=== PATIENT | female | born 1960 | race Caucasian/White ===

== ENCOUNTER 2016-06-02 17:34 | Emergency (ER) | payer BC ==
[2016-06-02 17:57] VITALS: BP 125/81
--- NOTE | 2016-06-02 19:12 | UC ---
Abdominal Pain Female HPI - HPI Summary HPI Summary: The patient comes in today for: 1. Abdominal pain: Onset: 4 days ago. Palliative/provocative: Not eating makes it better. No food particularly makes the pain better or worse. Quality: Bloating, cramping Region: Epigastric, but no radiation to the back, however she has left shoulder pain which started yesterday. Severity: 6/10 Time: Comes and goes. Associated symptoms: Diarrhea: For 1-2 days and the stool is oily. She had indigestion in her chest last night, FEvers: None known--no temperature taken, but she has had some chills--no sweats. She does not have her gallbladder--taken out due to stones. Regular doctor: Dr. Hodgson in [place]. Previous diagnosis: She has gastroparesis. Pancreas or stomach disease other than the gastroparesis. * - History of Current Complaint Chief Complaint: UCAbdominalPain Stated Complaint: ABDOMINAL PAIN Time Seen by Provider: 06/02/16 19:03 Hx Obtained From: Patient Hx Last Menstrual Period: Hyst. ?: No Allergies/Adverse Reactions: Allergies Allergy/AdvReac Type Severity Reaction Status Date / Time Latex Allergy Rash Verified 06/02/16 17:58 Home Medications: Home Medications Acetaminophen TAB* [Tylenol TAB*] 650 mg PO PRN 06/02/16 [History] Ondansetron TAB* [Zofran Tab*] PRN 06/02/16 [History] PMH/Surg Hx/FS Hx/Imm Hx Previously Healthy: No - Gastroparesis, interstitial cystitis Endocrine History Of: Reports: Thyroid Disease - HYPO, Dyslipidemia Denies: Diabetes Cardiovascular History Of: Denies: Cardiac Disorders, Hypertension, Pacemaker/ICD, Myocardial Infarction , Congestive Heart Failure, Atrial Fibrillation, Deep Vein Thrombosis, Bleeding Disorders Respiratory History Of: Denies: COPD, Asthma, Bronchitis, Pneumonia, Pulmonary Embolism GI/ History Of: Reports: Kidney Stones Denies: Gastroesophageal Reflux, Ulcer, Gastrointestinal Bleed, Gall Bladder Disease, Diverticulitis, Renal Disease, Urosepsis Neurological History Of: Denies: TIA, CVA, Dementia, Seizures, Migraine Psychological History Of: Denies: Anxiety, Depression, Bipolar Disorder, Schizophrenia, Post Traumatic Stress Disorder Cancer History Of: Denies: Lung Cancer, Colorectal Cancer, Breast Cancer, Prostate Cancer, Cervical Cancer Other History Of: Negative For: HIV, Hepatitis B, Hepatitis C, Anticoagulant Therapy - Surgical History Surgical History: Yes Surgery Procedure, Year, and Place: Reduction Mammoplasty 1999, Complete Hysterectomy age 24 ,RT knee surgery x3, Gallbladder removed; 2010 LASIK EYES - Family History Known Family History: Positive: Cardiac Disease, Hypertension - Social History Occupation: Employed Full-time Alcohol Use: Occasionally Alcohol Amount: 1 PER WEEK Substance Use Type: None Smoking Status (MU): Never Smoked Tobacco Review of Systems Constitutional: Negative Skin: Negative Eyes: Negative ENT: Negative Respiratory: Negative Cardiovascular: Negative Gastrointestinal: Abdominal Pain, Diarrhea Genitourinary: Negative All Other Systems Reviewed And Are Negative: Yes Physical Exam Triage Information Reviewed: Yes Appearance: Well-Appearing, No Pain Distress - She complains of pain, but is not grimacing., Well-Nourished Vital Signs: Initial Vital Signs Temp 97.9 F 06/02/16 17:54 Pulse 71 06/02/16 17:54 Resp 16 06/02/16 17:54 BP 125/81 06/02/16 17:54 Pulse Ox 100 06/02/16 17:54 Vital Signs Reviewed: Yes Eyes: Positive: Conjunctiva Clear. Negative: Discharge ENT: Positive: Hearing grossly normal. Negative: Pharyngeal erythema, Nasal congestion, Nasal drainage, TM bulging, TM dull, TM red, Tonsillar swelling, Tonsillar exudate Dental: Negative: Gross Decay/Caries @, Dental Fracture @ Neck: Positive: Supple, Nontender, No Lymphadenopathy. Negative: Nuchal Rigidity Respiratory: Positive: Lungs clear, No respiratory distress, No accessory muscle use. Negative: Crackles, Wheezing Cardiovascular: Positive: RRR, No Murmur Abdomen Description: Positive: No Organomegaly, Soft, Distended - Increased tympany.. Negative: Nontender - She has tenderness of the epigrastric and LUQ with palpation. NO rebound or percussion tenderness. Increased tympany, and bowel sounds were present., Bruit, Guarding, Peritoneal Signs, Pulsatile Mass Musculoskeletal: Positive: Strength Intact, ROM Intact Neurological: Positive: Alert, Muscle Tone Normal Psychological: Positive: Age Appropriate Behavior. Negative: Consolable Skin: Negative: rashes, breakdown Abd Pain Female Course/Dx - Differential Dx/Diagnosis Provider Diagnoses: Abdominal pain - Physician Notification/Consults Discussed Patient Care With: Edna Sheriff Time Discussed With Above Provider: 19:28 Discharge - Discharge Plan Condition: Stable Disposition: AGAINST MEDICAL ADVICE Additional Instructions: Please go directly to the ER.
== END 2016-06-02 19:30 | disposition left against medical advice (07) ==
LOC: UCEAST 17:34
DX: R10.13 Epigastric pain (principal); M25.512 Pain in left shoulder; Z90.49 Acquired absence of other specified parts of digestive tract
CPT/HCPCS: 99212; G0463

== ENCOUNTER 2016-06-02 19:49 | Emergency (ER) | payer BC ==
[2016-06-02 20:03] VITALS: BP 113/83
== END 2016-06-02 21:28 | disposition left against medical advice (07) ==
LOC: ED 19:49
DX: R10.9 Unspecified abdominal pain (principal); Z53.21 Procedure and treatment not carried out due to patient leaving prior to being seen by health care provider
CPT/HCPCS: 99281

== ENCOUNTER 2017-03-17 10:41 | Day surgery (SDC) | payer BC ==
--- NOTE | 2017-03-08 14:30 | HP ---
ADDENDUM NOW INCLUDED ON THIS REPORT CC: Dr. Jeanette Mcdermott; Dr. Susanna Hernandez * PREOPERATIVE HISTORY AND PHYSICAL: DATE OF ADMISSION: This patient is scheduled for same-day surgery admission by Dr. Xiao on 03/17/17. DATE OF PREOPERATIVE HISTORY AND PHYSICAL EXAMINATION: 03/08/17. ATTENDING SURGEON: Dr. Sheila Xiao * (dictated by Debi Stevenson NP). CHIEF COMPLAINT: Right breast lump. HISTORY OF PRESENT ILLNESS: The patient is a 56-year-old female, recently evaluated by Dr. Xiao for a right breast mass. The patient felt a lump in the right breast about 2 months ago and states that at times it is tender. All imaging was normal including MRI. Fine needle aspiration in our office did not have breast tissue and therefore, Dr. Xiao recommended excision of the right breast mass. The patient has had 2 pregnancies, had her first child at 18, menopause at age 24 when she had a total abdominal hysterectomy and bilateral salpingo-oophorectomy for cysts. She took HRT for 15 years. She has a very strong family history of breast cancer and melanoma, both paternally and maternally. She has a first cousin in her 50s with breast and ovarian cancer that is BRCA positive. Her maternal aunt (who is the BRCA carrier's mom) also had breast cancer. Her paternal uncle is the father of this cousin as well. There is also breast cancer in other paternal and maternal aunts as well as 2 other paternal cousins and 1 other paternal cousin. Her father and her brother both have had melanoma. There is also maternal history of colon cancer. Of note, the patient has had a bilateral reduction mammoplasty. Dr. Xiao examined the patient and notes a thickened asymmetrical mass in the right breast in the medial aspect at the edge of the mammoplasty scar. She has recommended excision of the right breast mass as a same-day surgery procedure and described the nature of the procedure, the relevant risks and benefits, and today I reviewed the typical postoperative care and recovery. The patient has had a chance to ask questions and stated that she understands the information and is satisfied with the answers given to her questions. She will sign surgical consent on the day of surgery. PAST MEDICAL HISTORY: Significant for hyperlipidemia, hypothyroidism, overactive bladder. She is followed for primary care by Dr. Susanna Hernandez. PAST SURGICAL HISTORY: Three knee procedures, bilateral reduction mammoplasty, laparoscopic cholecystectomy, YAQUELIN/BSO, and right foot surgery for a ganglion cyst. FAMILY HISTORY: Please refer to history of present illness; in terms of anesthesia history, she reports that her mother has had a very prolonged recovery and it sounds like she required Narcan to awaken. No family history of deep vein thrombosis or pulmonary embolism is known. No known bleeding tendencies. SOCIAL HISTORY: She is and is employed in the [employer] business and often works from home; she has never smoked and she occasionally drinks alcohol and denies the use of other substances. REVIEW OF SYSTEMS: Constitutional: No fevers, chills, excessive fatigue, or unintentional weight loss. Endocrine: No diabetes. She is treated for hypothyroidism. Hematologic: No easy bruising or bleeding. She had a blood transfusion in 1978 after her first delivery. Breasts: Right breast mass. Respiratory: No dyspnea on exertion. No chronic cough. Cardiovascular: No chest pain or palpitations. Gastrointestinal: No nausea, vomiting, diarrhea, or constipation. No change in bowel habits. No heartburn. Genitourinary: No dysuria. Musculoskeletal: Reports arthritic changes in the lower back. Neurologic: No history of seizures or concussions or focal weakness or numbness. General: No anesthesia complications but reports that she comes out of anesthesia slowly. No history of deep vein thrombosis or pulmonary embolism. PHYSICAL EXAMINATION GENERAL SURVEY: The patient is a 56-year-old female, well-developed, well- nourished, in no acute distress. VITAL SIGNS: Height 59 inches, weight 141 pounds, body mass index 28.5. Blood pressure 126/74, pulse 66 and regular, respiratory rate 16, temperature 97.3 tympanic. HEENT: Benign. NECK: Supple. No cervical lymphadenopathy. No supraclavicular lymphadenopathy. BREAST EXAM: Performed in a supine and sitting position. Breasts are symmetrical. Reduction mammoplasty scars are well healed. Palpation reveals dense tissue in the lower outer quadrants. In the right breast medially at the edge of the mammoplasty scar, the tissue is thickened asymmetrically compared to the left. Nipples are normal to inspection. No palpable axillary lymphadenopathy. LUNGS: Breath sounds bilaterally clear and equal. HEART: Regular rate and rhythm. No murmurs or rubs appreciated. ABDOMEN: Soft, nondistended, nontender throughout. No obvious masses or organomegaly. PELVIC AND RECTAL: Exams deferred. EXTREMITIES: Warm without edema or skin ulceration. NEUROLOGIC: Alert and oriented x3. Steady gait. SKIN: Warm, dry, intact. IMPRESSION: Right breast mass. PLAN: Same-day surgery admission to Dr. Xiao's service on 03/17/17, for excision of right breast mass. ADDENDUM: MEDICATIONS: 1. Levothyroxine 50 mcg p.o. daily. 2. Myrbetriq 50 mg p.o. daily. 3. Rosuvastatin 10 mg daily. 4. Multivitamin daily. 5. Vitamin D3 400 units daily. ALLERGIES: LATEX and ADHESIVE tape both cause hives. DANIELLE STEVENSON, HELEN [id number]/[facility] #: [id number] [id number]/[facility] #: [id number] MEKA
--- NOTE | 2017-03-08 14:30 | HP ---
PREOPERATIVE HISTORY AND PHYSICAL:* ADDENDUM: MEDICATIONS: 1. Levothyroxine 50 mcg p.o. daily. 2. Myrbetriq 50 mg p.o. daily. 3. Rosuvastatin 10 mg daily. 4. Multivitamin daily. 5. Vitamin D3 400 units daily. ALLERGIES: LATEX and ADHESIVE tape both cause hives. DANIELLE STEVENSON, SPRING MAKER [id number]/[facility] #: [id number] MEKA
[~2017-03-17 10:41] MED LIST: Buffered Lidocaine 0.9% SYRIN* 5 ML/SYR SYRINGE INTRADERM ONE; Sodium Citrate/Citric Acid* 15 ML UDC PO ONE
[2017-03-17] MEDS ORDERED: Sodium Citrate/Citric Acid* 15 ML UDC ONE (11:41)
[2017-03-17] MEDS ORDERED: ceFAZolin 2 GM PREMIX (*) 2 GM/50 ML BAG IVPB ONE (11:41)
[2017-03-17] MEDS ORDERED: Lidocaine 1% INJ* 10 MG/ML 30 ML SDV ONE (14:42)
[2017-03-17] MEDS ORDERED: Bupivacaine 0.5% SDV PF* 30 ML VIAL ONE (14:43)
[2017-03-17] MEDS ORDERED: Midazolam* 1 MG/ML 2 ML VIAL (2 MG) ONE ×2 (14:56→15:00)
[2017-03-17] MEDS ORDERED: fentaNYL* 50 MCG/ML 2 ML VIAL (100 MCG VIAL) ONE (14:56)
[2017-03-17] MEDS ORDERED: Propofol* 10 MG/ML 20 ML BTL IV PUSH ONE (15:03)
[2017-03-17] MEDS ORDERED: Acetaminophen TAB* 325 MG PO PRN (15:59)
--- NOTE | 2017-03-17 15:59 | PN ---
Progress Note - Progress Note Date of Service: 03/17/17 Note: Brief Operative Note: Preop Dx: Right breast mass Postop Dx: same Procedure: Excision Right breast mass Anesthesia: local, MAC Surgeon: Dameon Asst: none Fluids: EBL: min Specimen: Right breast mass Findings: dictated
[2017-03-17] MEDS ORDERED: HYDROcodone/ACETAMIN 5-325 MG* 1 TAB PO PRN (16:01)
[2017-03-17 16:43] VITALS: BP 133/72
--- NOTE | 2017-03-18 05:39 | OP ---
CC: [facility]; Dr. Susanna Fiore. OPERATIVE SUMMARY: DATE OF OPERATION: 05/17/16 DATE OF : 58 SURGEON: Sheila Xiao MD CHILI POWDER MIXER: There was no offset press assistant for this case. PRE-OP DIAGNOSIS: Right breast mass. POST-OP DIAGNOSIS: Right breast mass. OPERATIVE PROCEDURE: Excision of right breast mass. INDICATIONS: The patient is a 56-year-old woman with a history of bilateral breast reduction who had an abnormality recently identified by palpation. There were no imaging correlates, but the palpable abnormality persisted, so plans were made for surgical interventions. DESCRIPTION OF PROCEDURE: She was brought to the operating room, placed on the OR table in a supine position and given IV sedation. The right breast was prepped and draped in the usual sterile fashion . After infiltrating with local anesthetic, a curvilinear incision was made over the mass and subcut aneous tissue was divided with electrocautery to completely excise the mass of tissue. This was then handed off as a specimen. Hemostasis was achieved with electrocautery. Once this appeared adequate , some additional local was instilled into the wound. Closure was accomplished with 3-0 Polysorb in a subcutaneous layer and the skin was closed with 4-0 Prolene in a subcuticular fashion. Steri-Strip s and a dry sterile dressing were applied. All sponge and instrument counts were correct. The patie nt tolerated the procedure well and was transferred to Recovery in a stable condition. [id number]/[facility] #: [id number]
== END 2017-03-17 16:51 | disposition home or self-care (01) ==
LOC: OR 10:41
PROVIDERS: ATTEND Surgery
DX: N63.10 Unspecified lump in the right breast, unspecified quadrant (principal); E78.5 Hyperlipidemia, unspecified; E03.9 Hypothyroidism, unspecified; N32.81 Overactive bladder
CPT/HCPCS: 88307; A9270-GY; J0690; J2001; J2250; J2704; J3010

== ENCOUNTER 2017-05-17 12:44 | Emergency (ER) | payer BC ==
[2017-05-17 12:58] VITALS: BP 143/74
--- NOTE | 2017-05-17 13:02 | UC ---
Abdominal Pain Female HPI - HPI Summary HPI Summary: On 3rd day of nausea vomiting and diarrhea, no fevers, history of gastroparesis , cystitis - History of Current Complaint Chief Complaint: UCGI Stated Complaint: VOMITING Time Seen by Provider: 05/17/17 13:01 Hx Obtained From: Patient Hx Last Menstrual Period: Hyst. ?: No Onset/Duration: Gradual Onset, Lasting Days - 3, Still Present Timing: Constant Severity Initially: Moderate Severity Currently: Moderate Pain Intensity: 7 Location: Diffuse Radiates: No Character: Cramping Aggravating Factor(s): Food, Movement, Other: - water Alleviating Factor(s): Nothing Associated Signs and Symptoms: Positive: Decreased Appetite, Nausea, Vomiting, Diarrhea Allergies/Adverse Reactions: Allergies Allergy/AdvReac Type Severity Reaction Status Date / Time Latex Allergy Rash Verified 05/17/17 12:58 PMH/Surg Hx/FS Hx/Imm Hx Previously Healthy: No Endocrine History: Hypothyroidism GI/ History: Other Other GI/ History: gastroparesis Other History Of: Negative For: HIV, Hepatitis B, Hepatitis C, Anticoagulant Therapy - Surgical History Surgical History: Yes Surgery Procedure, Year, and Place: Reduction Mammoplasty 1999, Complete Hysterectomy age 24 ,RT knee surgery x3, Gallbladder removed; 2009 LASIK EYE SURGERY-20 YEARS. RIGHT FOOT SURGERY TO REMOVE A GANGLION-02/2016 - Family History Known Family History: Positive: Cardiac Disease, Hypertension - Social History Occupation: Employed Full-time Lives: With Family Alcohol Use: Weekly Alcohol Amount: 1 PER WEEK Substance Use Type: None Smoking Status (MU): Never Smoked Tobacco - Immunization History Most Recent Influenza Vaccination: 2017 Review of Systems Constitutional: Negative, Fatigue Skin: Negative Eyes: Negative ENT: Negative Respiratory: Negative Cardiovascular: Negative Gastrointestinal: Abdominal Pain, Vomiting, Diarrhea, Nausea Genitourinary: Negative Motor: Negative Neurovascular: Negative Musculoskeletal: Negative Neurological: Negative Psychological: Negative Is Patient Immunocompromised?: No All Other Systems Reviewed And Are Negative: Yes Physical Exam Triage Information Reviewed: Yes Appearance: Ill-Appearing, Pain Distress, Thin Vital Signs: Initial Vital Signs Temp 99.0 F 05/17/17 12:53 Pulse 74 05/17/17 12:53 Resp 16 05/17/17 12:53 BP 143/74 05/17/17 12:53 Pulse Ox 99 05/17/17 12:53 Vital Signs Reviewed: Yes Eye Exam: Normal Eyes: Positive: Conjunctiva Clear ENT Exam: Normal ENT: Positive: Normal ENT inspection, Hearing grossly normal, Pharynx normal, Uvula midline. Negative: Nasal congestion, Nasal drainage, Tonsillar swelling, Tonsillar exudate, Trismus, Muffled voice, Hoarse voice, Dental tenderness, Sinus tenderness Dental Exam: Normal Neck exam: Normal Neck: Positive: Supple, Nontender, No Lymphadenopathy Respiratory Exam: Normal Respiratory: Positive: Chest non-tender, Lungs clear, Normal breath sounds, No respiratory distress, No accessory muscle use Cardiovascular Exam: Normal Cardiovascular: Positive: RRR, No Murmur, Pulses Normal, Brisk Capillary Refill Abdominal Exam: Normal Abdomen Description: Positive: No Organomegaly, Soft, Other: - diffuse discomfort. Negative: CVA Tenderness (R), CVA Tenderness (L), Distended, Guarding Bowel Sounds: Positive: Present Musculoskeletal Exam: Normal Musculoskeletal: Positive: Strength Intact, ROM Intact, No Edema Neurological Exam: Normal Neurological: Positive: Alert, Muscle Tone Normal Psychological Exam: Normal Skin Exam: Normal Re-Evaluation - Re-Evaluation First Eval Change: Unchanged - continued emesisafter zofran and ice chips Abd Pain Female Course/Dx - Course Course Of Treatment: rest npo, ivf transfer to [facility] [place] by EMS for further evaluation - Differential Dx/Diagnosis Provider Diagnoses: Acute nausea, vomiting - Physician Notification/Consults Discussed Care of Patient With: Robert Mayorga Time Discussed With Above Provider: 14:30 Instructed by Provider To: Transfer Discharge - Discharge Plan Condition: Fair Disposition: TRANS HIGHER LVL OF CARE FAC Referrals: Susanna Hernandez MD [Primary Care Provider] -
[2017-05-17] MEDS ORDERED: Ondansetron ODT TAB* 4 MG PO ONE (13:08)
[2017-05-17] MEDS ORDERED: NS 0.9% 1000 ML* 1,000 ML IV ONE (14:19)
== END 2017-05-17 14:44 | disposition short-term general hospital (02) ==
LOC: UCEAST 12:44
DX: R11.2 Nausea with vomiting, unspecified (principal); R19.7 Diarrhea, unspecified; Z87.19 Personal history of other diseases of the digestive system
CPT/HCPCS: 81003; 99213; A9270-GY; G0463

== ENCOUNTER 2017-05-17 15:02 | Emergency (ER) | payer BC ==
[2017-05-17] MEDS ORDERED: NS 0.9% 1000 ML* 2,000 ML IV ONE (15:57)
[2017-05-17 16:18] LABS: ABS Basophils 0 10^3/ul (0-0.2); ABS Eosinophils 0.1 10^3/ul (0-0.6); ABS Lymphocytes 1.8 10^3/ul (1.0-4.8); ABS Monocytes 0.5 10^3/ul (0-0.8); ABS Neutrophils 1.7 10^3/ul (1.5-7.7); ABS Nucleated RBC 0 10^3/ul; Eosinophil % 1.4 % (0-6); Hematocrit 44 % (35-47); Lymphocyte % 44.3 % (25-47); Mean Corpuscular HGB Conc 34 g/dl (31-36); Mean Corpuscular Hemoglobin 31 pg (27-31); Mean Corpuscular Volume 89 fL (80-97); Mean Platelet Volume 8 um3 (7.4-10.4); Nucleated Red Blood Cells % 0; Platelet Count 206 10^3/ul (150-450); Red Blood Count 4.92 10^6/ul (4.0-5.4); Red Cell Distribution Width 12 % (10.5-15); White Blood Count 4.1 10^3/ul (3.5-10.8)
[2017-05-17 16:30] LABS: EGFR Non-African American 72.9 (>60)
[2017-05-17] MEDS ORDERED: KCL 10 MEQ/50 ML IVPREMIX* 20 MEQ/100 ML BAG ONE (16:56)
[2017-05-17] MEDS: KCL 10 MEQ/50 ML IVPREMIX* 10 MEQ/50 ML BAG IV SCH ×2 (16:59→18:01)
[2017-05-17] MEDS ORDERED: Ondansetron INJ* 2 MG/ML VIAL IV ONE (17:12)
[2017-05-17] MEDS ORDERED: Metoclopramide IV* 5 MG/ML 2 ML VIAL IV ONE (17:17)
[2017-05-17] MEDS ORDERED: Iohexol 300* (CONTRAST) 10 ML SDV IV ONE (17:52)
[2017-05-17 18:00] LABS: Urine Appearance Clear; Urine Blood 1+ (Negative); Urine Color Straw; Urine Ketones Negative (Negative); Urine Protein Negative (Negative); Urine Specific Gravity 1.003 (1.010-1.030); Urine Urobilinogen Negative (Negative)
--- NOTE | 2017-05-17 19:05 | RAD ---
INDICATION: Abdominal pain. Nausea. Vomiting. COMPARISON: CT abdomen pelvis November 07, 2008 TECHNIQUE: Axial source images were obtained from the hemidiaphragms to the symphysis pubis following administration of oral and intravenous contrast. 81 mL Omnipaque 300 was utilized. Coronal and sagittal reconstructed images were acquired. Lung bases: The lung bases are clear. Liver: The liver is normal in size. There are no masses. There is no ductal dilatation. Gallbladder: Cholecystectomy. Spleen: The spleen is normal in size. There are no masses. Pancreas: There is no focal pancreatic mass or ductal dilatation. Adrenal glands: There is no evidence of adrenal mass. Kidneys: The kidneys are normal in size and position. There are prompt nephrograms and there is prompt excretion bilaterally. There are no renal parenchymal masses. There is no evidence of nephrolithiasis. Adenopathy: There is a small left adrenal cyst or adenoma, unchanged. The right adrenal gland is normal. Fluid collections: There are no free or localized fluid collections. Vessels:There are no significant atherosclerotic changes involving the aorta. There is no focal aneurysm. The iliac vessels are normal in caliber. The IVC appears normal. GI tract: There are scattered air-fluid levels. There are several mildly prominent small bowel loops and there are air-fluid levels in the colon. There is normal transit of oral contrast without findings of obstruction. There may be a mild ileus, however. There is appendectomy by surgical history. Pelvic organs: There is hysterectomy. There is no adnexal mass Bladder: There are no bladder masses. Abdominal and pelvic soft tissues: The extraperitoneal abdominal and pelvic soft tissues appear normal.. Osseous structures: There are no acute osseous findings. Other: None IMPRESSION: NO MASS OR INFLAMMATORY CHANGES. SUSPECT MILD ILEUS. SUGGEST A FOLLOW-UP ABDOMINAL SERIES INDICATED
--- NOTE | 2017-05-17 19:36 | ED ---
Christofer Lawson Gabriel, scribed for Brayden Hoyos MD on 05/17/17 at 1538 . Complex/Multi-Sys Presentation - HPI Summary HPI Summary: This patient is a 56 year old F BIBA to [facility] accompanied by her family with a chief complaint of n/v/d since 05/15/17. Patient was seen at and sent [facility] ambulance with IV fluids, she was give Zofran at . The patient rates the pain 6/10 in severity. Symptoms aggravated by PO intake. Patient reports diffuse ABD pain and WARD. Patient denies fever. She describes her diarrhea as oily light brown and had it 6 times 05/15 none yesterday and once today. She is producing yellow vomit every time she even takes a sip of water. Denies recent antibiotic use and exposure to sick persons. - History Of Current Complaint Chief Complaint: EDNauseaVomitDiarrh Time Seen by Provider: 05/17/17 15:31 Hx Obtained From: Patient Onset/Duration: Lasting Days - 2, Still Present Timing: Constant Severity Currently: Moderate Severity Initially: Moderate Associated Signs And Symptoms: Positive: Nausea, Vomiting, Diarrhea, Abdominal Pain, Other - WARD. Negative: Fever - Allergies/Home Medications Allergies/Adverse Reactions: Allergies Allergy/AdvReac Type Severity Reaction Status Date / Time Latex Allergy Rash Verified 05/17/17 12:58 PMH/Surg Hx/FS Hx/Imm Hx Endocrine/Hematology History: Reports: Hx Thyroid Disease - ON MEDICATION FOR Denies: Hx Anticoagulant Therapy, Hx Diabetes Cardiovascular History: Denies: Hx Congestive Heart Failure, Hx Deep Vein Thrombosis, Hx Hypertension , Hx Myocardial Infarction, Hx Pacemaker/ICD, Other Cardiovascular Problems/ Disorders Respiratory History: Denies: Hx Asthma, Hx Chronic Obstructive Pulmonary Disease (COPD), Hx Lung Cancer, Hx Pneumonia, Hx Pulmonary Embolism GI History: Reports: Other GI Disorders - GASTROPARESIS Denies: Hx Gall Bladder Disease, Hx Gastrointestinal Bleed, Hx Ulcer, Hx Urosepsis History: Reports: Hx Kidney Stones - HX OF, Other Problems/Disorders - INTERSTITIAL CYSTITIS Denies: Hx Dialysis, Hx Renal Disease Musculoskeletal History: Reports: Hx Arthritis - BACK AND LEFT KNEE Denies: Hx Scoliosis Sensory History: Reports: Hx Contacts or Glasses - READING GLASSES Denies: Hx Hearing Aid Opthamlomology History: Reports: Hx Contacts or Glasses - READING GLASSES Neurological History: Reports: Hx Headaches - FROM NECK PAIN Denies: Hx Dementia, Hx Migraine, Hx Seizures, Hx Transient Ischemic Attacks (TIA) Psychiatric History: Denies: Hx Anxiety, Hx Depression, Hx Panic Disorder, Hx Schizophrenia, Hx Bipolar Disorder - Cancer History Hx Chemotherapy: No Hx Radiation Therapy: No - Surgical History Surgery Procedure, Year, and Place: Reduction Mammoplasty 1999, Complete Hysterectomy age 24 ,RT knee surgery x3, Gallbladder removed; 2009 LASIK EYE SURGERY-20 YEARS. RIGHT FOOT SURGERY TO REMOVE A GANGLION-02/2016 Hx Anesthesia Reactions: Yes - HAS BEEN TO SLOW TO COME OUT OF ANESTHESIA - Immunization History Date of Influenza Vaccine: 02/2017 Immunizations Up to Date: Yes Infectious Disease History: No Infectious Disease History: Denies: History Other Infectious Disease, Traveled Outside the [place] in Last 30 Days - Family History Known Family History: Positive: Cardiac Disease, Hypertension - Social History Lives: With Family Alcohol Use: Weekly Alcohol Amount: 1 PER WEEK Hx Substance Use: No Substance Use Type: Reports: None Hx Tobacco Use: No Smoking Status (MU): Never Smoked Tobacco Review of Systems Negative: Fever Positive: Abdominal Pain, Vomiting, Diarrhea, Nausea Positive: Headache All Other Systems Reviewed And Are Negative: Yes Physical Exam Triage Information Reviewed: Yes Vital Signs On Initial Exam: Initial Vitals Temp Pulse Resp BP Pulse Ox 98.6 F 67 17 162/81 99 05/17/17 15:14 05/17/17 15:14 05/17/17 15:14 05/17/17 15:14 05/17/17 15:14 Vital Signs Reviewed: Yes Appearance: Positive: Well-Appearing, No Pain Distress Skin: Positive: Warm Head/Face: Positive: Normal Head/Face Inspection Eyes: Positive: EOMI ENT: Positive: Normal ENT inspection, Other - dry membranes Neck: Positive: Nontender Respiratory/Lung Sounds: Positive: Clear to Auscultation, Breath Sounds Present Cardiovascular: Positive: RRR. Negative: Murmur Abdomen Description: Positive: Other: - diffuse tender Musculoskeletal: Positive: Strength/ROM Intact Neurological: Positive: Sensory/Motor Intact, Alert, Oriented to Person Place, Time, CN Intact II-III Psychiatric: Positive: Normal, Affect/Mood Appropriate - [place] Coma Scale Best Eye Response: 4 - Spontaneous Best Motor Response: 6 - Obeys Commands Best Verbal Response: 5 - Oriented Coma Scale Total: 15 Diagnostics - Vital Signs Vital Signs Temp Pulse Resp BP Pulse Ox 05/17/17 15:14 98.6 F 67 17 162/81 99 - Laboratory Result Diagrams: 05/17/17 14:25 05/17/17 14:25 Lab Statement: Any lab studies that have been ordered have been reviewed, and results considered in the medical decision making process. - CT CT ABD/Pelvis CT Interpretation Completed By: Radiologist - NO MASS OR INFLAMMATORY CHANGES. SUSPECT MILD ILEUS. SUGGEST A FOLLOW-UP ABDOMINAL SERIES INDICATED. ED physician has reviewed this report. - EKG 16:09 Cardiac Rate: Bradycardia EKG Rhythm: Sinus Bradycardia - at 59 BPM EKG Interpretation: flipped T wave EKG Comparison: No Significant Change - in comparison to EKG from 09/13/07 Complex Multi-Symp Course/Dx - Diagnoses Provider Diagnoses: Abdominal pain, Nausea vomiting and diarrhea, Hypertension Discharge - Discharge Plan Condition: Good Disposition: HOME Patient Education Materials: Acute Abdominal Pain (ED), Acute Nausea and Vomiting (ED), Acute Diarrhea (ED), Hypertension (ED) Referrals: Susanna Hernandez MD [Primary Care Provider] - 2 Days The documentation as recorded by the Christofer sharp Gabriel accurately reflects the service I personally performed and the decisions made by Soha seo Walter, MD.
[2017-05-17 19:38] VITALS: BP 147/77
== END 2017-05-17 19:51 | disposition home or self-care (01) ==
LOC: ED 15:02
DX: R11.2 Nausea with vomiting, unspecified (principal); R19.7 Diarrhea, unspecified; I10 Essential (primary) hypertension; R10.9 Unspecified abdominal pain
CPT/HCPCS: 36415; 74177; 80053; 81003; 81015; 83605; 83690; 84484; 85025; 86140; 87040; 93005; 96374; 96375; 99282; J3480; Q9967

== ENCOUNTER 2017-09-14 07:48 | Day surgery (SDC) | payer BC ==
[~2017-09-14 07:48] MED LIST changes: +Famotidine TAB* 20 MG PO ONE; +Metoclopramide IV* 5 MG/ML 2 ML VIAL IV SLOW PU ONE; -Sodium Citrate/Citric Acid* 15 ML UDC PO ONE
[2017-09-14] MEDS ORDERED: Famotidine TAB* 20 MG ONE (08:01)
[2017-09-14] MEDS ORDERED: ceFAZolin 2 GM PREMIX (*) 2 GM/50 ML BAG IVPB ONE (08:01)
[2017-09-14] MEDS ORDERED: Metoclopramide IV* 5 MG/ML 2 ML VIAL ONE (08:01)
[2017-09-14] MEDS ORDERED: Midazolam* 1 MG/ML 2 ML VIAL (2 MG) ONE (08:17)
[2017-09-14] MEDS ORDERED: fentaNYL* 50 MCG/ML 2 ML VIAL (100 MCG VIAL) ONE (08:17)
[2017-09-14] MEDS ORDERED: Dexamethasone IV* 4 MG/ML 1 ML (4 MG) ONE (09:11)
[2017-09-14] MEDS ORDERED: Lidocaine 1% INJ* 10 MG/ML 30 ML SDV ONE (09:11)
[2017-09-14] MEDS ORDERED: Bupivacaine 0.5% SDV PF* 30ML VIAL ONE (09:11)
[2017-09-14] MEDS ORDERED: Naloxone* 0.4 MG/ML 1 ML VIAL IV PRN (09:49)
[2017-09-14 10:32] VITALS: BP 139/68
[2017-09-14] MEDS ORDERED: Propofol* 10 MG/ML 20 ML BTL IV PUSH ONE (12:21)
--- NOTE | 2017-09-15 04:17 | OP ---
DATE OF OPERATION: 09/14/17 - [facility] DATE OF : 58 SURGEON: Greg Ashford DPM TORNADO CHASER: None. ANESTHESIA: MAC with local. PRE-OP DIAGNOSES: 1. Painful ganglion cyst, dorsolateral right foot. 2. 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 POST-OP DIAGNOSES: 1. Painful ganglion cyst, dorsolateral right foot. 2. 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 OPERATIVE PROCEDURES: 1. Excision of ganglion cyst, dorsolateral right foot. 2. External neurolysis of the intermediate dorsal cutaneous nerve, right foot. PATHOLOGY: Fibrous and synovial tissue that was excised. HEMOSTASIS: Pneumatic ankle tourniquet. ESTIMATED BLOOD LOSS: Less than 10 cc. INDICATIONS: The patient with possibly new or recurrent synovial/ganglion cyst at the dorsolateral aspect of the right foot. She had previous surgical excision more proximal to this area and over the past 6 plus months, the cyst has increased in size and there is increased hypersensitivity and paresthesias along the medial to the previous incision and more distal correlating with the ganglion cyst. The patient has difficulty and pain wearing closed shoes, as any pressure in the area causes pain. She opts for surgery at this time to attempt to decrease her pain and improve her function and inability to wear closed shoes. DESCRIPTION OF PROCEDURE: The patient was brought to the operating room, placed on the operating table in supine position. A ring block was performed of the dorsal right foot around the circumference of the subcutaneous cyst which was visible and palpable. The right foot was then prepped and draped in the usual fashion. Right foot was then exsanguinated with an Esmarch bandage. A pneumatic touch ankle tourniquet was inflated to 250 mmHg above a well-padded right ankle. Attention was directed to the dorsolateral aspect of the right foot where a previous surgical scar was used, a portion of the incision and then a more curvilinear aspect was carried more medial and distal to allow for adequate exposure of the cyst. The incision was deepened through the subcutaneous tissue with care being taken to retract neurovascular structures and to cauterize superficial bleeders as needed. At the more proximal aspect, a branch of the intermediate dorsal cutaneous nerve was identified. There were some fibrous adhesions more lateral. These were gently freed from these adhesions as much as possible and followed more distally and the nerve was then gently retracted and protected throughout the procedure. Dissection was carried through the deep fascia where there was some fibrous tissue from the previous surgery as well as a more medial portion of the extensor hallucis brevis muscle. The synovial cyst was visible and free from surrounding soft tissue attachments. Much of the adjacent fascia as well as portion of the muscle belly was required to be resected to decrease the chance of recurrence. The area was inspected deep as well as distal, lateral, medial and proximally to this area to ensure no further visible synovial tissue or cyst was noted. This being done, the surgical site was flushed with copious amounts of normal sterile saline. The deep fascia was reapproximated with 4-0 Vicryl, the subcutaneous tissues were reapproximated with 4-0 Vicryl and skin was closed with 5-0 nylon. 12 mg dexamethasone phosphate was infiltrated about the surgical site and the incision was dressed with Xeroform gauze and a mildly compressive dressing was applied consisting of 4x4 gauze, Owen and light Coban wrap. The pneumatic ankle tourniquet was deflated about the right ankle and a prompt hyperemic response was noted in all 5 digits of the patient's right foot. Having appeared to have tolerated the procedure and anesthesia well, the patient was transported via cart from the operating to Recovery in satisfactory condition with capillary refill less than 3 seconds to all digits of the right foot. [id number]/[facility] #: [id number] MEKA
== END 2017-09-14 10:56 | disposition home or self-care (01) ==
LOC: OREAST 07:48
PROVIDERS: ATTEND Podiatrist Foot Surgery
DX: M67.471 Ganglion, right ankle and foot (principal); G58.8 Other specified mononeuropathies; E03.9 Hypothyroidism, unspecified; E78.00 Pure hypercholesterolemia, unspecified; M19.90 Unspecified osteoarthritis, unspecified site
CPT/HCPCS: 88304; A9270-GY; J0690; J1100; J2250; J2704; J2765; J3010